=== PATIENT | male | born 1965 | race Caucasian/White ===

== ENCOUNTER 2021-01-03 11:15 | Emergency (ER) | payer OTHER, SELFPAY ==
[2021-01-03 11:27] VITALS: BP 145/76; PULSE 62; RESP 16; TEMP 36.6; O2SAT 98; BMI 35.4
--- NOTE | 2021-01-03 11:44 | XRR_ITS ---
PROCEDURE INFORMATION: Exam: XR Right Knee Exam date and time: 01/03/2021 12:07 PM Age: 55 years old Clinical indication: Injury or trauma; Fall; Blunt trauma; Right; Injury date: 01/03/21; Prior surgery; Surgery type: RT knee TECHNIQUE: Imaging protocol: XR Right knee. Views: 3 views. COMPARISON: No relevant prior studies available. FINDINGS: Bones/joints: There is narrowing of the medial compartment consistent with osteoarthritis. No acute bony abnormality is seen. There is a circumscribed sclerotic density in the proximal central metaphysis of the tibia which reflects a chronic finding. This finding measures 35.5 mm x 24.4 mm. Soft tissues: Normal. XR/XR knee RT 3V* [id number] IMPRESSION: No acute bone abnormality. Sclerotic density proximal tibial metaphysis Mild osteoarthritis diarrhea
--- NOTE | 2021-01-03 11:44 | W.ED.EXTPRO ---
HPI - Extremity Problem General: Chief complaint: Extremity Injury, Lower Stated complaint: Pain in R. Knee Time Seen by Provider: 01/03/21 11:38 Source: patient Mode of arrival: ambulatory Limitations: no limitations History of Present Illness: HPI Narrative: 55-year-old male patient comes in today with complaints of right knee pain. Patient reports he was getting into his truck today when he slipped when his right knee gave out on him causing him to fall striking his knee against the ground. Since then patient has had pain and discomfort to the right knee with difficulty standing and bearing weight to the knee and also using the foot to drive. Patient appears well. Patient appears no acute distress. Patient does appear in mild to moderate pain. Patient does report that he has significant arthritis to the knee with a history of meniscal repair and recommendations for knee replacement at some time. MD Complaint: joint pain Onset (ago): hour(s) Pain Consistency: intermittent Location: right Quality: aching Radiation: none Relieving factors: cold therapy and rest Exacerbating factors: range of motion and weight bearing Associated symptoms: Reports no associated symptoms Context: other Review of Systems General: Reports: 10 or more systems reviewed and unremarkable except in HPI and below Musc: Reports: joint pain (Right knee pain and injury) Physical Exam Const: COMMON NORMALS: no acute distress and patient oriented x3 GENERAL APPEARANCE: cooperative HENMT: COMMON NORMALS: normocephalic and Normal external nose present HEAD & SCALP: normal to inspection and normocephalic NOSE: Normal external nose present Eye: GENERAL EYE: appearance normal, both eyes and all related structures Neck/C-Spine: COMMON NORMALS: full ROM Chest: COMMONS NORMALS: normal inspection of the chest Resp: COMMON NORMALS: normal respiratory effort EFFORT & INSPECTION: Yes able to speak in complete sentences Cardio: COMMON NORMALS: regular rate and regular rhythm RATE: regular rate RHYTHM: regular rhythm GI: COMMON NORMALS: non-tender Back/Pelvis: COMMON NORMALS: thoracic and lumbar spine normal to inspection Extremity: NARRATIVE EXTREMITY EXAM: Normal range of motion, tenderness noted to the joint line and anterior aspects of the knee. Minimal swelling is noted. No obvious deformity. Neuro: COMMON NORMALS: patient oriented x3 and moves all extremities Psych: COMMON NORMALS: mental status grossly normal and cooperative Skin: COMMON NORMALS: no rashes or lesions noted GENERAL SKIN EXAM: no rashes or lesions noted Course Vital Signs: Vital signs: Vital Signs Temperature 97.9 F 01/03/21 11:27 Pulse Rate 62 01/03/21 11:27 Respiratory Rate 16 01/03/21 11:27 Blood Pressure 145/76 01/03/21 11:27 Pulse Oximetry 98 01/03/21 11:27 MDM - Extremity (Nontraumatic) MDM Narrative: Medical decision making narrative: 55-year-old male patient comes in today with complaints of right knee pain after hitting the knee against the ground when it gave out on him. Patient appears well. Patient has joint line tenderness on the medial side of the right knee. No obvious deformity. Differential diagnosis includes but not limited to meniscal injury, fracture, contusion. X-ray noted no obvious fracture or dislocation. Reviewed exam with patient with recommendations for treatment and follow-up. Patient reported understanding of care plan and need for follow-up or return to the ER. Case management was consulted for orthopedic referral for concerns of injury to the meniscus. Discharge Plan Discharge Patient Disposition: Home Clinical Impression: Right knee injury Qualifiers: Encounter type: initial encounter Qualified Code(s): S89.91XA - Unspecified injury of right lower leg, initial encounter Condition: Stable Prescriptions: New diclofenac potassium 50 mg tablet 50 mg PO Q8H PRN (Reason: pain) Qty: 14 RF: 0 Discharge Orders: Discharge ED (Routine); Ordered 01/03/21 Ordered By: Diallo Roblero Discharge Diet: Usual diet Discharge Activity: Increase activity as tolerated Patient Instructions: Knee Pain (ED), Opioid Safety Activity Restrictions/Additional Instructions: Use ice to the knee 4 times a day as needed for further knee pain relief. Use diclofenac and acetaminophen for further pain control. Activity as tolerated. Use crutches until he can bear weight comfortably on the knee. Follow-up with orthopedics for further evaluation and treatment. Return to the ER for new concerns. Stand Alone Forms: Work/School Release Coding Level of Care Code ED [employer] Exam Comprehensive
--- NOTE | 2021-01-04 07:23 | DCPLANNER ---
client program manager had message to schedule a follow up appointment for patient with ortho. client program manager called the ortho clinic, spoke with Sangeeta, gave clinic patients information. client program manager was told that patients information would be printed and reviewed. Clinic will call patient with appointment information.
--- NOTE | 2021-01-26 14:48 | DCPLANNER ---
facility manager called ortho to confirm that a follow up appointment had been scheduled for patient. facility manager spoke with Sangeeta. facility manager was told that patient followed up with ortho in [place].
== END 2021-01-03 12:50 | disposition home or self-care (01) ==
PROVIDERS: Emergency Provider Nurse Practitioner Family
DX: S89.91XA Unspecified injury of right lower leg, initial encounter (principal); W01.0XXA Fall on same level from slipping, tripping and stumbling without subsequent striking against object, initial encounter
CPT/HCPCS: 73562; 99283; E0114